=== PATIENT | female | born 1975 | race Caucasian/White ===

== ENCOUNTER 2016-12-19 10:59 | Outpatient (CLI) ==
[2016-12-19 11:16] LABS: BASOPHILS % (AUTO) 0.4 % (0.0-3.0); EOSINOPHILS % (AUTO) 0.2 % (0.0-7.0); HEMATOCRIT 42.2 % (37.0-47.0); IMMATURE GRANULOCYTE % (AUTO) 0.2 % (0.0-5.0); LYMPHOCYTES # (AUTO) 1.8 K/uL (0.60-3.4); LYMPHOCYTES % (AUTO) 34.2 (10.0-50.0); MEAN CORPUSCULAR HEMOGLOBIN 31.8 pg (27.0-31.0); MEAN CORPUSCULAR HGB CONC 35.5 (31.8-35.4); MEAN CORPUSCULAR VOLUME 89.4 fl (81.0-99.0); MONOCYTES # (AUTO) 0.4 K/uL (0.4-2.0); MONOCYTES % (AUTO) 7.6 (0-10); NEUTROPHILS % (AUTO) 57.4; PLATELET COUNT 220 10^3/uL (140-440); RED BLOOD COUNT 4.72 10^6/ul (4.20-5.40); WHITE BLOOD COUNT 5.29 K/ul (4.6-10.2)
[2016-12-19 11:28] LABS: SERUM PREGNANCY INTERNAL QC INTERNAL QC VALID
[2016-12-19 12:00] LABS: ALBUMIN 4.4 g/dL (3.4-5.0); ALBUMIN/GLOBULIN RATIO 1.42; BILIRUBIN,TOTAL 0.62 mg/dL (0.00-1.20); BUN/CREATININE RATIO 8.86; CALCIUM 9.8 mg/dL (8.2-10.2); CREATININE 0.79 mg/dL (0.60-1.30); TOTAL PROTEIN 7.5 g/dL (6.4-8.2)
== END 2016-12-19 11:00 ==
LOC: LAB 10:59
PROVIDERS: ATTEND Family Medicine
DX: R00.0 Tachycardia, unspecified (principal)
CPT/HCPCS: 36415; 80053; 84439; 84443; 84703; 85025

== ENCOUNTER 2017-01-06 06:40 | Outpatient (CLI) ==
--- NOTE | 2017-01-06 11:39 | ECHO2D ---
Date of Exam: 01/06/17 Ordering Physician: RAJENDRA MAYORGA/LOS Reason for Echo: CHEST PAIN WITH EXERTION, MITRAL VALVE PROLAPSE M-Mode Normal Adult Results LV Dimensions Normal Adult Results AoV Opening excursions >1.6 >1.6 LVEDD-base- 3.5-5.8 4.0 Ao root dimensions 2.0-3.7 3.1 LVESD-base- 3.1-4.6 L. Atrium dimensions 1.9-3.8 2.7 Post. Wall thickness 0.8-1.1 0.9 IV septum (thickness) 0.7-1.2 0.9 Post. Wall excursion 0.72-1.3 NORMAL Septal motion NORMAL Systolic motion R. Ventricular cavity 1.5-2.0 NORMAL LVEF 60% 60% Paradoxical septal wall motion NORMAL 2-D : MITRAL VALVE PROLAPSE NOTED, LEFT PARASTERNAL LONG AXIS, APICAL FOUR CHAMBER VIEW, NORMAL LEFT VENTRICULAR CONTRACTILITY--NO EFFUSION, NO THROMBUS M-MODE: MV: MITRAL VALVE PROLAPSE LATE SYSTOLIC AV: NORMAL TV: NORMAL PV: CHAMBER SIZE: NORMAL WALL MOTION: NORMAL PERICARDIUM: NORMAL INTERPRETATION: 1. LATE SYSTOLIC MITRAL VALVE PROLAPSE 2. NORMAL LEFT VENTRICULAR CONTRACTILITY 3. NORMAL LEFT ATRIAL AND LEFT VENTRICLE SIZE MTDD
== END 2017-01-06 06:41 | disposition home or self-care (01) ==
LOC: CAR 06:40
PROVIDERS: ATTEND Internal Medicine
DX: R07.9 Chest pain, unspecified (principal); R06.02 Shortness of breath

== ENCOUNTER 2017-01-09 06:40 | Outpatient (CLI) | END 2017-01-09 06:41 | disposition home or self-care (01) | LOC: CAR 06:40 | PROVIDERS: ATTEND Internal Medicine | DX: R07.9 Chest pain, unspecified (principal); R06.02 Shortness of breath | CPT/HCPCS: 93227 ==

== ENCOUNTER 2017-08-27 20:54 | Emergency (ER) | payer OTHER ==
[2017-08-27 20:59] VITALS: BP 145/94; TEMP 98.2; BMI 22.1
[2017-08-27] MEDS ORDERED: ZOFRAN 4 MG/2 ML IM STA (21:11)
[2017-08-27] MEDS ORDERED: DEMEROL 25 MG/ML VIAL IM STA (21:11)
--- NOTE | 2017-08-27 21:14 | ED.PDOC ---
General ED Provider: Dr. WERO WILKINS Chief Complaint: Abdominal Pain Stated Complaint: Came for the left LQ pain, no nausea or vomiting, has h/o constipation Time Seen by Physician: 21:12 Mode of Arrival: Walk-In Information Source: Patient Primary Care Provider: NOLVIA MADISON Nursing and Triage Documentation Reviewed and Agree: Yes Reviewed sepsis parameters & appropriate labs ordered?: No System Inflammatory Response Syndrome: Not Applicable Sepsis Protocol: For patient's 13 years and over: Temp is 96.8 and below OR 101 and greater Pulse >90 BPM Resp >20/minute Acutely Altered Mental Status Are patient's symptoms suggestive of a new infection, such as: -Pneumonia -Skin, Soft Tissue -Endocarditis -UTI -Bone, Joint Infection -Implantable Device -Acute Abdominal Infection -Wound Infection -Meningitis -Blood Stream Catheter Infection -Unknown GI Complaint Exam - Abdominal Pain Complaint/Exam Onset: Sudden Symptoms Are: Still present Timing: Constant Initial Severity: Moderate Current Severity: Severe Location of Pain: LLQ Radiates To: Reports: Flank Character: Reports: Aching, Throbbing Alleviating: Reports: None Associated Signs and Symptoms: Reports: Nausea. Denies: Diaphoresis, Fever, Cough, Chest pain, Dizziness, Back pain, Constipation, Blood in stool, Dysuria, Urinary frequency, Decreased urine output, Decreased appetite, Vaginal bleeding , Vaginal discharge, Vomiting, Diarrhea, Sore throat, Decreased activity Related History: Reports: Similar episode AAA Risk Factors: Reports: None Cardiac Risk Factors: Reports: None Ectopic Risk Factors: Reports: None Ovarian Torsion Risk Factors: Reports: None Surgical Obstruction Risk Factors: Reports: None Related Surgical History: Reports: None Patient Rh Status: Unknown Abdominal Findings: Present: None Differential Diagnoses: Bowel Obstruction, Constipation, Diverticulitis, Renal Colic, UTI, Review of Systems - Review Of Systems Constitutional: Reports: Malaise, Weakness Eyes: Reports: No symptoms Ears, Nose, Mouth, Throat: Reports: No symptoms Respiratory: Reports: No symptoms Cardiac: Reports: No symptoms GI: Reports: Abdominal pain : Reports: No symptoms Musculoskeletal: Reports: No symptoms Skin: Reports: No symptoms Neurological: Reports: No symptoms Endocrine: Reports: No symptoms Hematologic/Lymphatic: Reports: No symptoms All Other Systems: Reviewed and Negative Past Medical History - Past Medical History Previously Healthy: Yes Endocrine: Reports: None Cardiovascular: Reports: Hypertension Respiratory: Reports: None Hematological: Reports: None Gastrointestinal: Reports: None Genitourinary: Reports: None Neuro/Psych: Reports: None Musculoskeletal: Reports: None Cancer: Reports: None Last Menstrual Period: 08/05/17 - Surgical History General Surgical History: Reports: None - Family History Family History: Reports: None - Social History Smoking Status: Never smoker Hx Substance Use: No Alcohol Screening: Occasionally - Immunizations Tetanus Shot up to Date: Yes Physical Exam - Physical Exam Appearance: Ill-appearing, Thin Pain Distress: Severe Eyes: GORGE, EOMI, Conjunctiva clear ENT: Ears normal, Nose normal, Oropharynx normal Respiratory: Airway patent, Breath sounds clear, Breath sounds equal, Respirations nonlabored Cardiovascular: RRR, Pulses normal, No rub, No murmur GI/: Tender Musculoskeletal: Normal strength, ROM intact, No edema, No calf tenderness Skin: Warm, Dry, Normal color Neurological: Sensation intact, Motor intact, Reflexes intact, Cranial nerves intact, Alert, Oriented Psychiatric: Affect appropriate, Mood appropriate Interpretation - Radiology Interpretation Radiology Interpretation By: Radiologist Radiology Results: Positive (constipation) Exam Interpreted: CT Scan Critical Care Note - Critical Care Note Total Time (mins): 30 Course - Course Hematology/Chemistry: 08/27/17 21:21 08/27/17 21:21 Orders, Labs, Meds: Lab Review 08/27/17 08/27/17 08/27/17 21:18 21:18 21:21 WBC 11.59 H RBC 4.34 Hgb 13.3 Hct 38.7 MCV 89.2 MCH 30.6 MCHC 34.4 RDW Coeff of Guy 12.2 Plt Count 227 Immature Gran % (Auto) 0.3 Neut % (Auto) 72.1 Lymph % (Auto) 20.5 Sequ[place] % (Auto) 6.5 Eos % (Auto) 0.3 Baso % (Auto) 0.3 Immature Gran # (Auto) 0.0 Neut # (Auto) 8.4 H Lymph # (Auto) 2.4 Sequ[place]ah # (Auto) 0.8 Eos # (Auto) 0.0 Baso # (Auto) 0.0 Sodium Potassium Chloride Carbon Dioxide Anion Gap BUN Creatinine Estimated GFR (MDRD) BUN/Creatinine Ratio Glucose Calcium Total Bilirubin AST ALT Alkaline Phosphatase Total Protein Albumin Globulin Albumin/Globulin Ratio Amylase Lipase Urine Color Yellow Urine Clarity Clear Urine pH 6.0 Ur Specific [place] 1.015 Urine Protein Negative Urine Glucose (UA) Negative Urine Ketones Negative Urine Blood Negative Urine Nitrite Negative Urine Bilirubin Negative Urine Urobilinogen 0.2 Ur Leukocyte Esterase Negative Urine Test Negative 08/27/17 21:21 WBC RBC Hgb Hct MCV MCH MCHC RDW Coeff of Guy Plt Count Immature Gran % (Auto) Neut % (Auto) Lymph % (Auto) [place] % (Auto) Eos % (Auto) Baso % (Auto) Immature Gran # (Auto) Neut # (Auto) Lymph # (Auto) [place] # (Auto) Eos # (Auto) Baso # (Auto) Sodium 138 Potassium 3.3 L Chloride 104 Carbon Dioxide 23 Anion Gap 14.3 BUN 9 Creatinine 0.71 Estimated GFR (MDRD) 92.00 BUN/Creatinine Ratio 12.67 Glucose 105 Calcium 9.4 Total Bilirubin 0.5 AST 21 ALT 35 Alkaline Phosphatase 79 Total Protein 7.4 Albumin 4.1 Globulin 3.3 Albumin/Globulin Ratio 1.24 Amylase 25 Lipase 22 Urine Color Urine Clarity Urine pH Ur Specific [place] Urine Protein Urine Glucose (UA) Urine Ketones Urine Blood Urine Nitrite Urine Bilirubin Urine Urobilinogen Ur Leukocyte Esterase Urine Test Orders Category Date Time Status AMYLASE Stat LAB 08/27/17 21:21 Completed CBC W/ AUTO DIFF Stat LAB 08/27/17 21:21 Completed COMPREHENSIVE METABOLIC PANEL Stat LAB 08/27/17 21:21 Completed LIPASE Stat LAB 08/27/17 21:21 Completed URINALYSIS C & S IF INDICATED Stat LAB 08/27/17 21:18 Completed URINE Stat LAB 08/27/17 21:18 Completed Meperidine HCl/Pf [Demerol 25 mg/ml Vial] MEDS 08/27/17 21:11 Discontinued 25 mg IM ONCE STA Meperidine HCl/Pf [Demerol 50 mg/ml Vial] MEDS 08/27/17 21:15 Discontinued 50 mg .ROUTE .STK-MED ONE Ondansetron HCl/Pf [Zofran 4 mg/2 ml] MEDS 08/27/17 21:11 Discontinued 4 mg IM ONCE STA Promethazine HCl [Phenergan 25 mg/ml Vial] MEDS 08/27/17 21:56 Discontinued 25 mg IM ONCE STA CT ABDOMEN/PELVIS WO CONTRAST Stat RADS 08/27/17 21:11 Completed Medications Discontinued Medications Generic Name Dose Route Start Last Admin Trade Name Freq PRN Reason Stop Dose Admin Meperidine HCl 25 mg 08/27/17 21:11 08/27/17 21:16 Demerol 25 Mg/Ml Vial IM 08/27/17 21:12 25 mg ONCE STA Administration Ondansetron HCl 4 mg 08/27/17 21:11 08/27/17 21:17 Zofran 4 Mg/2 Ml IM 08/27/17 21:12 4 mg ONCE STA Administration Promethazine HCl 25 mg 08/27/17 21:56 08/27/17 22:00 Phenergan 25 Mg/Ml Vial IM 08/27/17 21:57 25 mg ONCE STA Administration Vital Signs: Temp Pulse Resp BP Pulse Ox 08/27/17 20:54 98.2 F 110 H 20 145/94 H 98 Departure - Departure Time of Disposition: 22:26 Disposition: HOME SELF-CARE Discharge Problem: Abdominal pain Constipation Qualifiers: Constipation type: unspecified constipation type Qualified Code(s): K59.00 - Constipation, unspecified Instructions: Constipation (ED) Condition: Stable Pt referred to PMD for follow-up: Yes IPMP verified?: No Additional Instructions: INCREASE FIBRE DIET CONTINUE TAKING MIRALAX Allergies/Adverse Reactions: Allergies No Known Allergies Allergy (Unverified 08/27/17 20:59) Home Medications: Ambulatory Orders Lorazepam [Ativan] 0.5 mg PO BEDTIME PRN #30 01/09/14 Bupropion HCl [Wellbutrin] 75 mg PO DAILY 08/27/17 Buspirone HCl 15 mg PO BEDTIME 08/27/17 Disposition Discussed With: Patient
[2017-08-27] MEDS ORDERED: DEMEROL 50 MG/ML VIAL ONE ×2 (21:15→21:16)
[2017-08-27] MEDS ORDERED: PHENERGAN 25 MG/ML VIAL IM STA (21:56)
--- NOTE | 2017-08-27 22:13 | CT ---
EXAM: CT abdomen pelvis without intravenous contrast 08/27/2017. Sagittal and coronal reformatted i mages obtained HISTORY: Left lower quadrant pain COMPARISON: None. FINDINGS: The liver shows no acute abnormality. The gallbladder has been removed. The adrenal glands and kidneys show no acute abnormality. The spleen and pancreas show no acute process. No bowel obstruction. Normal appendix. Unremarkable urinary bladder. There is a small quantity of free fluid in the dependent aspect of the pelvis. No acute osseous abnormality. There is a large quantity of stool in the colon. Correlate for constipation/fecal stasis. There is suggestion of possible right ovarian cysts. Limited characterization due to lack of intrave nous contrast. IMPRESSION: 1. No urinary or bowel obstruction. 2. Partially visualized appendix appears within normal limits 3. Small quantity of free fluid in the pelvis 4. Status post cholecystectomy. 5. Large quantity of stool in the colon suggesting constipation/fecal stasis. 6. There is suggestion of right ovarian cysts. Characterization is limited due to the lack of intra venous contrast
== END 2017-08-27 22:33 | disposition home or self-care (01) ==
LOC: ED 20:54
DX: R10.32 Left lower quadrant pain (principal); K59.00 Constipation, unspecified
CPT/HCPCS: 36415; 80053; 81001; 81025; 82150; 83690; 85025; 96372; 99283